=== PATIENT | male | born 1970 | race Caucasian/White ===

== ENCOUNTER → 2020-06-26 | Outpatient (CLI) | payer BC, OTHER | LOC: KOH-I 08:03 | DX: M25.511 Pain in right shoulder (principal); M25.512 Pain in left shoulder; M19.012 Primary osteoarthritis, left shoulder; M19.011 Primary osteoarthritis, right shoulder | CPT/HCPCS: 73030 ==

== ENCOUNTER → 2020-11-17 | Outpatient (CLI) | payer BC | LOC: KOH-I 13:23 | DX: J32.9 Chronic sinusitis, unspecified (principal) | CPT/HCPCS: 70486 ==

== ENCOUNTER 2021-02-16 15:11 | Emergency (ER) | payer BC ==
[~2021-02-16] VITALS: Ht 170.2 cm; Wt 90.7 kg
== END 2021-02-16 19:00 | disposition home or self-care (01) ==
LOC: ER1 15:11
DX: U07.1 COVID-19 (principal); I10 Essential (primary) hypertension; Z90.49 Acquired absence of other specified parts of digestive tract; F17.200 Nicotine dependence, unspecified, uncomplicated
CPT/HCPCS: 99283; M0245

== ENCOUNTER 2021-06-23 13:01 | Emergency (ER) | payer BC | END 2021-06-23 14:39 | disposition home or self-care (01) | LOC: ER1 13:01 | DX: S41.112A Laceration without foreign body of left upper arm, initial encounter (principal); F17.200 Nicotine dependence, unspecified, uncomplicated; W26.8XXA Contact with other sharp object(s), not elsewhere classified, initial encounter; Y92.009 Unspecified place in unspecified non-institutional (private) residence as the place of occurrence of the external cause | CPT/HCPCS: 12002; 99283 ==

== ENCOUNTER → 2021-07-28 | Outpatient (CLI) | payer BC ==
[2021-07-29 07:09] LABS: ANTISTREPTOLYSIN O AB <20.0 IU/mL (0.0-200.0); FSH 5.7 mIU/mL (1.5-12.4); LUTEINIZING HORMONE(LH) 5.7 mIU/mL (1.7-8.6); PROGESTERONE 0.2 ng/mL (0.0-0.5); RHEUMATOID ARTHRITIS FACTOR 43.3 IU/mL (<14.0)
[2021-07-31 14:12] LABS: TESTOSTERONE, SERUM 379 ng/dL (264-916)
== END ==
LOC: LAB 07:46
PROVIDERS: Nurse Practitioner Family
DX: M25.50 Pain in unspecified joint (principal); R53.83 Other fatigue; R05.9 Cough, unspecified; R68.89 Other general symptoms and signs
CPT/HCPCS: 36415; 71046; 82670; 83001; 83002; 84144; 84146; 84402; 84403; 84550; 85652; 86038; 86060; 86140; 86141; 86431

== ENCOUNTER → 2021-10-04 | Outpatient (CLI) | payer BC | LOC: HEART 5 07:54 | DX: R06.02 Shortness of breath (principal); I10 Essential (primary) hypertension; R68.89 Other general symptoms and signs; R07.9 Chest pain, unspecified; I08.1 Rheumatic disorders of both mitral and tricuspid valves | CPT/HCPCS: 78452; 93306; A9502 ==